=== PATIENT | male | born 1965 | race Caucasian/White ===

== ENCOUNTER 2024-07-05 02:33 | Emergency (ER) | payer MEDICARE, MEDICAID, SELFPAY ==
[2024-07-05 02:33] VITALS: BMI 20.9
[2024-07-05 02:41] VITALS: BP 142/92; PULSE 91; RESP 18; TEMP 36.7; O2SAT 98; BMI 21.0
[2024-07-05] MEDS: SILVER NITRATE 1 APPL EA TOP ×2 (03:50→03:55)
--- NOTE | 2024-07-05 04:01 | PD.EDEPIST ---
ED Epistaxis RME/HPI General Chief complaint: Epistaxis/Nasal Foreign Body Stated complaint: NOSE BLEED Time Seen by Provider: 07/05/24 03:24 Arrival date/time: 07/05/24 02:33 57M with history of psych disorder presents to ED with caregiver for spontaneous nosebleed. Patient is not on bleed thinner. Limitations: no limitations Related Data Home Medications ?Medication ?Instructions ?Recorded ?Confirmed allopurinol 100 mg tablet 100 mg PO DAILY #0 tabs 10/11/16 12/31/19 (Zyloprim) digoxin 125 mcg (0.125 mg) tablet 125 mcg PO QDAY ##0 10/21/16 01/01/20 levothyroxine 25 mcg tablet 25 mcg PO QDAY #0 tabs 10/21/16 12/31/19 divalproex 500 mg tablet,delayed 500 mg PO BID 06/06/19 12/31/19 release lorazepam 0.5 mg tablet (Ativan) 0.5 mg PO BID 06/06/19 01/01/20 atorvastatin 20 mg tablet 20 mg PO QDAY 12/31/19 12/31/19 ibuprofen 800 mg tablet 800 mg PO Q8H PRN Pain 12/31/19 12/31/19 loratadine 10 mg tablet 10 mg PO QDAY 12/31/19 12/31/19 melatonin 3 mg capsule 3 mg PO HS PRN Sleep 12/31/19 12/31/19 metformin 500 mg tablet 750 mg PO QDAY 12/31/19 12/31/19 Previous Rx's ?Medication ?Instructions ?Recorded aspirin 81 mg chewable tablet 81 mg PO QDAY ##100 10/05/16 docusate sodium 250 mg capsule 250 mg PO QDAY #100 caps 10/05/16 (DOK) Allergies Allergy/AdvReac Type Severity Reaction Status Date / Time ziprasidone Allergy Severe Rash Verified 07/05/24 02:35 thioridazine Allergy Unknown Verified 07/05/24 02:35 haloperidol Allergy Rash Verified 07/05/24 02:35 Review of Systems Review of Systems Systems Reviewed: All systems reviewed, normal except as documented Constitutional Constitutional: Reports system reviewed and no additional complaints, except as documented, Denies fever(s) and Denies headache(s) ENT Ears, Nose, Mouth, and Throat: Reports as per HPI, Denies disequilibrium, Reports epistaxis and Denies headache(s) Cardiovascular Cardiovascular: Reports system reviewed and no additional complaints, except as documented, Denies chest pain and Denies dyspnea Respiratory Respiratory: Reports system reviewed and no additional complaints, except as documented, Denies cough and Denies dyspnea Gastrointestinal Gastrointestinal: Reports system reviewed and no additional complaints, except as documented, Denies abdominal pain, Denies nausea and Denies vomiting Neurologic Neurologic: Reports system reviewed and no additional complaints, except as documented, Denies confusion, Denies disequilibrium and Denies headache(s) Psychiatric Psychiatric: Denies confusion Past Medical History Past Medical History NEUROLOGIC: Positive Neurological Disorders and Cerebral Palsy; Negative Seizures CARDIAC: Positive Cardiac Disorders, Hypercholesterolemia (TAKES MED), Congestive Heart Failure and Hypertension (TAKES MED) RESPIRATORY: Negative Chronic Obstructive Pulmonary Disease (COPD), Tuberculosis or Sleep Apnea GASTROINTESTINAL: Positive Gastrointestinal Disorders (CHRONIC CONSTIPATION) GENITOURINARY: Negative Genitourinary Disorders or Renal Disease MUSCULOSKELETAL: Positive Musculoskeletal Disorders and Gout ENDOCRINE: Positive Endocrine Disorders and Diabetes Mellitus Type 2 (TAKES PO MED); Negative Diabetes Mellitus Type 1 HEMATOLOGIC: Negative Blood Disorders OTHER HISTORY: Negative Hospitalization, Shingles, Falls, Blood Transfusions, Blood Transfusion Reaction, Anesthesia Reactions, Chicken Pox, Measles, Mumps or Cancer Surgical History SURGICAL: Positive Cardiac Surgery and Pacemaker (LEFT CHEST) Social History SMOKING STATUS: Never smoker SECOND HAND EXPOSURE: No ED Exam General Limitations: Present no limitations General appearance: Present alert and in no apparent distress Head Head exam: Present atraumatic Eye Eye exam: Present normal appearance, PERRL and EOMI ENT ENT exam: Present normal oropharynx and mucous membranes moist Expanded ENT Exam Nasal speculum exam: Left: epistaxis Neck Neck exam: Present normal inspection, full ROM and trachea midline Chest Chest inspection: Present normal inspection and symmetric chest wall rise Respiratory Respiratory exam: Present normal lung sounds bilaterally Cardiovascular Cardiovascular exam: Present regular rate, normal rhythm and normal heart sounds Abdominal Exam Abdominal exam: Present soft and normal bowel sounds Extremities Exam Extremities exam: Present normal inspection and full ROM Back Exam Back exam: Present normal inspection and full ROM Neurological Exam Neurological exam: Present alert, oriented X3 and CN II-XII intact Psychiatric Psychiatric exam: Present normal affect and normal mood Skin Skin exam: Present warm, dry, intact and normal color Course Quality Measures none Orders Category Date Time Status Silver Nitrate Applicators Med 07/05/24 03:24 Discontinued 1 appl TOP X1 ONE Silver Nitrate Applicators Med 07/05/24 03:44 Discontinued 1 appl TOP X1 ONE Vital Signs Vital signs: Vital Signs Temperature 98.0 F 07/05/24 02:41 Pulse Rate 91 07/05/24 02:41 Respiratory Rate 18 07/05/24 02:41 Blood Pressure 142/92 H 07/05/24 02:41 Pulse Oximetry (%) 98 07/05/24 02:41 Oxygen Delivery Method Room Air 07/05/24 02:41 O2 at 98% on RA and WNLs Epistaxis MDM Narrative MDM Narrative:: 57M with history of psych disorder presents to ED with caregiver for spontaneous nosebleed. Patient is not on bleed thinner. Physical exam reveals raw skin in L nare. Normal pupil response. No gross head trauma. Patient is afebrile, calm, and alert. Bleeding cauterized to prevent recurrent bleed. Patient data External records reviewed:: [facility] previous records Clinical information provided by:: patient and transmission inspector Social determinants that could affect healthcare access:: mental health Patient has the following chronic illnesses:: psych How is presenting disease/condition affected by chronic disease/condition?: exacerbated by Evaluation data The following diagnostics were reviewed and interpreted by me:: other (specify) (none) Lab and/or radiology exams considered but not ordered:: not ordered Interpretation Summary: n/a Medications / Prescriptions Medications or Prescriptions considered but not ordered:: ordered Medication administrations:: Medication Administration History Discontinued Medications Silver Nitrate (Silver Nitrate 1 Appl Ea) 1 appl TOP X1 ONE Stop: 07/05/24 03:25 Last Admin: 07/05/24 03:50 Dose: 1 appl Documented By: INÉS Comments: ADMINISTERED BYPROVIDER COYLE Silver Nitrate (Silver Nitrate 1 Appl Ea) 1 appl TOP X1 ONE Stop: 07/05/24 03:45 Last Admin: 07/05/24 03:55 Dose: 1 appl Documented By: INÉS Comments: ADMINISTERED BY PROVIDER COYLE above Consultations Consultation(s) initiated? (list below): No Diagnosis Epistaxis Differential Diagnosis: nasal bone fracture, anterior epistaxis and posterior epistaxis Most likely diagnosis given after review of the tests above:: epistaxis Admission Indicated Admission indicated?: not indicated Admission Request Was there a request for admission?: No Disposition Plan Disposition Plan: Discharge Discharge Attestation Discharge Attestation: The patient and all family members were given an opportunity to ask questions and understood the discharge instructions. Discharge instructions specifically effects, indications for sooner follow up or return to the emergency department, and the expected course of current diagnosis. Patient condition: Stable Discharge Plan Plan Patient Disposition: HOME (Self Care) Disposition Comment: Stable Prescriptions/Referrals Prescriptions/Med Rec: No Action aspirin 81 MG tablet,chewable 81 mg PO QDAY Qty: 100 0RF docusate sodium [DOK] 250 MG capsule 250 mg PO QDAY Qty: 100 0RF allopurinol [Zyloprim] 100 MG tablet 100 mg PO DAILY Qty: 0 levothyroxine 25 mcg Tablet 25 mcg PO QDAY Qty: 0 digoxin 125 MCG tablet 125 mcg PO QDAY Qty: 0 divalproex 500 mg Tablet,Delayed Release (Dr/Ec) 500 mg PO BID lorazepam [Ativan] 0.5 mg Tablet 0.5 mg PO BID metformin 500 mg Tablet 750 mg PO QDAY ibuprofen 800 mg Tablet 800 mg PO Q8H PRN (Reason: Pain) loratadine 10 mg Tablet 10 mg PO QDAY melatonin 3 mg Capsule 3 mg PO HS PRN (Reason: Sleep) atorvastatin 20 mg Tablet 20 mg PO QDAY Problem List Clinical Impression: Epistaxis Patient/Caregiver Discharge Instructions Education Materials: ED Epistaxis (Adult) Additional Instructions: Please follow-up with PCP within 24-48 hours and return immediately if symptoms worsen. Print Language: Yakut Stand Alone Forms: Patient Portal Info Letter TULIO/ABHINAV Supervising Physician TULIO/ABHINAV Supervising Physician: Dr. Alfred
== END 2024-07-05 04:00 | disposition home or self-care (01) ==
LOC: SERX 03:59
PROVIDERS: Emergency Provider Emergency Medicine; PCP Family Medicine
DX: R04.0 Epistaxis (principal)
CPT/HCPCS: 30901; 99283

== ENCOUNTER 2024-10-12 11:45 | Emergency (ER) | payer MEDICARE, MEDICAID, SELFPAY ==
[2024-10-12 11:46] VITALS: BMI 22.2
--- NOTE | 2024-10-12 11:58 | XR_ITS ---
Examination: Foot, left, 3 views Technique: AP, oblique, lateral views foot, 3 views Date and time of exam: October 12, 2024 1209 hours INDICATIONS: Swelling in foot pain beginning 5 days ago. FINDINGS: Moderate osteopenia Soft tissue swelling dorsum of the foot Mild bunion deformity No fracture No cortical bone destruction IMPRESSION: No fracture No cortical bone destruction
--- NOTE | 2024-10-12 11:58 | XR_ITS ---
Examination: Duplex scan of the lower extremity, unilateral left complete Date and time of exam: October 12, 2024 1227 hours INDICATIONS: Left lower leg swelling and pain beginning 3 days ago Technique: Duplex scan of the extremity veins using B-mode/grayscale imaging and Doppler spectral analysis and color flow Attention is directed to internal echogenicity, compression and augmentation involving these veins, color flow assessment, spectral analysis Findings: Major deep venous structures in the extremity demonstrate normal course and caliber. There is no evidence of deep vein thrombosis. Normal color flow and spectral analysis Impression: Negative for DVT..
--- NOTE | 2024-10-12 11:59 | EDNOTE_ITS ---
<Statement entered by Beulah Haile MD - 10/12/24 17:55> As co-signing physician, I was present and available for consult prn. I concur with the plan and care as documented by the midlevel provider. ED General RME/HPI General Chief complaint: Ankle/Foot Injury Stated complaint: LEFT FOOT/ANKLE SWELLING SINCE SATURDAY Time Seen by Provider: 10/12/24 11:56 Arrival date/time: 10/12/24 11:45 CC: Left foot pain and swelling HPI ongoing for 4 days with no relief. Patient is developmentally delayed and nonverbal caretakers state the patient has been limping, grimacing when walking. Providers deny fever chills shortness of breath nausea or vomiting. Related Data Home Medications ?Medication ?Instructions ?Recorded ?Confirmed allopurinol 100 mg tablet 100 mg PO DAILY #0 tabs 09/1412/31/19 (Zyloprim) digoxin 125 mcg (0.125 mg) tablet 125 mcg PO QDAY ##0 10/21/16 01/01/20 levothyroxine 25 mcg tablet 25 mcg PO QDAY #0 tabs 03/3112/31/19 divalproex 500 mg tablet,delayed 500 mg PO BID 9 12/31/19 release lorazepam 0.5 mg tablet (Ativan) 0.5 mg PO BID 9 01/01/20 atorvastatin 20 mg tablet 20 mg PO QDAY 12/31/1912/30 ibuprofen 800 mg tablet 800 mg PO Q8H PRN Pain 12/3012/31/19 loratadine 10 mg tablet 10 mg PO QDAY 12/31/1912/30 melatonin 3 mg capsule 3 mg PO HS PRN Sleep 0 12/31/19 metformin 500 mg tablet 750 mg PO QDAY 12/31/1912/13 Previous Rx's ?Medication ?Instructions ?Recorded aspirin 81 mg chewable tablet 81 mg PO QDAY ##100 09/13 10/29 docusate sodium 250 mg capsule 250 mg PO QDAY #100 cap s 10/05/16 (DOK) Allergies Allergy/AdvReac Type Severity Reaction Status Date / Time ziprasidone Allergy Severe Rash Verified 10/12/24 11:48 thioridazine Allergy Unknown Verified 10/12/24 11:48 haloperidol Allergy Rash Verified 10/12/24 11:48 Review of Systems Review of Systems ROS Unobtainable: unobtainable due to mental status Past Medical History Past Medical History NEUROLOGIC: Positive Neurological Disorders and Cerebral Palsy; Negative Seizures CARDIAC: Positive Cardiac Disorders, Hypercholesterolemia (TAKES MED), Congestive Heart Failure and Hypertension (TAKES MED) RESPIRATORY: Negative Chronic Obstructive Pulmonary Disease (COPD), Tuberculosis or Sleep Apnea GASTROINTESTINAL: Positive Gastrointestinal Disorders (CHRONIC CONSTIPATION) GENITOURINARY: Negative Genitourinary Disorders or Renal Disease MUSCULOSKELETAL: Positive Musculoskeletal Disorders and Gout ENDOCRINE: Positive Endocrine Disorders and Diabetes Mellitus Type 2 (TAKES PO MED); Negative Diabetes Mellitus Type 1 HEMATOLOGIC: Negative Blood Disorders OTHER HISTORY: Negative Hospitalization, Shingles, Falls, Blood Transfusions, Blood Transfusion Reaction, Anesthesia Reactions, Chicken Pox, Measles, Mumps or Cancer Surgical History SURGICAL: Positive Cardiac Surgery and Pacemaker (LEFT CHEST) Social History SMOKING STATUS: Never smoker SECOND HAND EXPOSURE: No ED Exam Narrative Physical exam: [General: Appears not in any acute distress Head normocephalic HEENT: Eyes pupils are PERRLA EOMs tracking mouth pink dry membranes all the subsystems of ATTR within acceptable limits Neck is supple nontender Chest equal chest rise nontender to palpation Respiratory: Clear to auscultation no wheezes crackles or rubs CV: Rate rhythm is regular no murmurs rubs or clicks Abdomen is soft nontender no masses positive bowel sounds all 4 quadrants Back: No CVA tenderness no spinous process tenderness from cervical spine thoracic and lumbar spine Skin: Intact no petechiae rash induration ulceration or crepitus Extremities: Left foot: Nonpitting edema, no erythema streaking open lesions induration or ulcerations. Bottom of the foot is clean dry and intact no erythema or open lesions indurations. No grimacing with calcaneal squeeze metatarsal squeeze. No grimacing with palpation of the left calf. Moving all other extremities against resistance cap refill less than 2 seconds neurosensory intact Neuro: Awake alert, reported as baseline for care provider at bedside Course Quality Measures none Orders Category Date Time Status US venous doppler LE LT Stat Exams 10/12/24 11:58 Completed XR foot comp LT min 3V Stat Exams 10/12/24 11:58 Completed CBC Stat Lab 10/12/24 13:06 Completed CMP [Comprehensive Metabolic Panel] Stat Lab 10/12/24 13:06 Completed Vital Signs Vital signs: Vital Signs Temperature 97.5 F 10/12/24 12:03 Pulse Rate 89 10/12/24 12:03 Respiratory Rate 18 10/12/24 12:03 Blood Pressure 173/77 H 10/12/24 12:03 Pulse Oximetry (%) 97 10/12/24 12:03 Oxygen Delivery Method Room Air 10/12/24 12:03 [facility] Patient data External records reviewed:: [facility] previous records Clinical information provided by:: patient and race and sports book writer Social determinants that could affect healthcare access:: none Patient has the following chronic illnesses:: Chronic bipolar disorder How is presenting disease/condition affected by chronic disease/condition?: u neffected by Evaluation data The following diagnostics were reviewed and interpreted by me:: lab results and radiology exam(s) Lab and/or radiology exams considered but not ordered:: CBC shows no acute leukocytosis there is a mild anemia 12.8 and 38.98 Mehmet crit no thrombocytopenia. CMP shows no acute electrolyte imbalances no renal impairment transaminitis or T. bili elevation. Ultrasound of the leg is negative for DVT X-ray of the foot is negative for fracture malalignment dislocation as interpreted by me read by radiology. Interpretation Summary: Foot pain with foot edema Medications Medications considered but not ordered:: None Medication administrations:: None Consultations Consultation(s) initiated? (list below): No Diagnosis Differential Diagnosis ED Complaint MDM: Cellulitis fracture, DVT Most likely diagnosis given after review of the tests above:: foot pain Admission Indicated Admission indicated?: not indicated Explain why admission is indicated or not indicated:: stable of discharge Admission Request Was there a request for admission?: No Disposition Plan Disposition Plan: Discharge Discharge Attestation Discharge Attestation: The patient and all family members were given an opportunity to ask questions and understood the discharge instructions. Discharge instructions specifically effects, indications for sooner follow up or return to the emergency department, and the expected course of current diagnosis. Patient condition: Stable Medical Decision Making Differential Diagnosis Differential Diagnosis: Cellulitis fracture, DVT Lab Data 10/12/24 13:06 10/12/24 13:06 Labs: Lab Results 10/12/24 Range/Units 13:06 WBC 8.9 (3.8-10.6) Thou/mm3 RBC 4.95 (4.50-5.90) Miln/mm3 Hgb 12.8 L (13.5-16.0) g/dL Hct 39.9 L (41.0-53.0) % MCV 81 (80-100) fL MCH 25.9 (25.0-35.0) pg MCHC 32.1 (31.0-37.0) g/dl RDW Std Deviation 43.8 (35.1-43.9) fL Plt Count 255 (140-440) Thou/mm3 Neut % (Auto) 73 (37-80) % Lymph % (Auto) 13 (10-50) % [place] % (Auto) 11 (0-12) % Eos % (Auto) 3 (0-10) % Baso % (Auto) 1 (0-2.5) % Neut # (Auto) 6.5 (1.8-7.7) Thou/mm3 Lymph # (Auto) 1.2 (1.0-4.8) Thou/mm3 [place] # (Auto) 1.0 H (0.0-0.8) Thou/mm3 Eos # (Auto) 0.2 (0.0-0.5) Thou/mm3 Baso # (Auto) 0.1 (0.0-0.2) Thou/mm3 Immature Gran # (Auto) 0.02 H (0.00-0.00) Thou/mm3 Absolute Nucleated RBC 0.00 (0.00-0.00) Thou/mm3 Immature Gran % 0 (0-0) % Nucleated RBC % 0 (0) /100 WBC Sodium 142 (136-145) mMol/L Potassium 4.1 (3.4-5.1) mMol/L Chloride 103 (98-107) mMol/L Carbon Dioxide 26.4 (20.0-31.0) mMol/L Anion Gap 13 (7-16) BUN 21 (9-23) mg/dL Creatinine 0.8 (0.6-1.3) mg/dL Estim Creat Clear Calc 90.2 (>60) mL/min eGFR > 60 (60 - ) See Note BUN/Creatinine Ratio 26 H (12-20) Ratio Glucose 106 (74-106) mg/dL Calculated Osmolality 286 (275-295) Calcium 10.6 (8.3-10.6) mg/dL Corrected Calcium 10.6 H (8.5-10.1) mg/dL Total Bilirubin 0.5 (0.3-1.2) mg/dL AST 24 (0-34) U/L ALT 13 (10-49) U/L Alkaline Phosphatase 83 (46-116) U/L Total Protein 8.1 (5.7-8.2) gm/dL Albumin 4.9 (3.5-5.0) gm/dL Globulin 3.2 (2.3-3.5) gm/dL Albumin/Globulin Ratio 1.5 (1.2-2.2) Discharge Plan Plan Patient Disposition: HOME (Self Care) Patient condition on transfer: Stable Prescriptions/Referrals Prescriptions/Med Rec: No Action aspirin 81 MG tablet,chewable 81 mg PO QDAY Qty: 100 0RF docusate sodium [DOK] 250 MG capsule 250 mg PO QDAY Qty: 100 0RF allopurinol [Zyloprim] 100 MG tablet 100 mg PO DAILY Qty: 0 levothyroxine 25 mcg Tablet 25 mcg PO QDAY Qty: 0 digoxin 125 MCG tablet 125 mcg PO QDAY Qty: 0 divalproex 500 mg Tablet,Delayed Release (Dr/Ec) 500 mg PO BID lorazepam [Ativan] 0.5 mg Tablet 0.5 mg PO BID metformin 500 mg Tablet 750 mg PO QDAY ibuprofen 800 mg Tablet 800 mg PO Q8H PRN (Reason: Pain) loratadine 10 mg Tablet 10 mg PO QDAY melatonin 3 mg Capsule 3 mg PO HS PRN (Reason: Sleep) atorvastatin 20 mg Tablet 20 mg PO QDAY Referrals: Kaci Lainez FNP [Primary Care Provider] - In 1 week Problem List Clinical Impression: Foot pain Patient/Caregiver Discharge Instructions Education Materials: ED Pain, Acute, Uncertain Cause Additional Instructions: Ibuprofen or Tylenol for pain. He may walk if he wants to pain dependent. If is worsening of symptoms follow-up with a primary care provider. Print Language: Cook Islander Stand Alone Forms: Lorraine Award Info., Work/School Release, Patient Portal Info Letter TULIO/OVEN WORKER Supervising Physician TULIO/OVEN WORKER Supervising Physician: Thanh Izaguirre ENP
[2024-10-12 12:03] VITALS: BP 173/77; PULSE 89; RESP 18; TEMP 36.4; O2SAT 97
[2024-10-12 13:27] LABS: Basophils # (Auto) 0.1 Thou/mm3 (0.0-0.2); Basophils % (Auto) 1 % (0-2.5); Eosinophils # (Auto) 0.2 Thou/mm3 (0.0-0.5); Eosinophils % (Auto) 3 % (0-10); Hematocrit 39.9 % (41.0-53.0); Hemoglobin 12.8 g/dL (13.5-16.0); Immature Granulocytes % (Auto) 0 % (0-0); Immature Granulocytes Auto 0.02 Thou/mm3 (0.00-0.00); Lymphocytes # (Auto) 1.2 Thou/mm3 (1.0-4.8); Lymphocytes % (Auto) 13 % (10-50); Mean Corpuscular HGB Conc 32.1 g/dl (31.0-37.0); Mean Corpuscular Hemoglobin 25.9 pg (25.0-35.0); Mean Corpuscular Volume 81 fL (80-100); Monocytes % (Auto) 11 % (0-12); Neutrophils # (Auto) 6.5 Thou/mm3 (1.8-7.7); Neutrophils % (Auto) 73 % (37-80); Nucleated Red Blood Cell % 0 /100 WBC (0); Platelet Count 255 Thou/mm3 (140-440); RDW Standard Deviation 43.8 fL (35.1-43.9); Red Blood Count 4.95 Miln/mm3 (4.50-5.90); White Blood Count 8.9 Thou/mm3 (3.8-10.6)
[2024-10-12 13:48] LABS: Alanine Aminotransferase 13 U/L (10-49); Albumin, Serum 4.9 gm/dL (3.5-5.0); Albumin/Globulin Ratio 1.5 (1.2-2.2); Alkaline Phosphatase 83 U/L (46-116); Anion Gap 13 (7-16); Aspartate Amino Transferase 24 U/L (0-34); BUN/Creatinine Ratio 26 Ratio (12-20); Bilirubin,Total 0.5 mg/dL (0.3-1.2); Blood Urea Nitrogen 21 mg/dL (9-23); Calcium 10.6 mg/dL (8.3-10.6); Calcium (Corrected) 10.6 mg/dL (8.5-10.1); Carbon Dioxide 26.4 mMol/L (20.0-31.0); Chloride 103 mMol/L (98-107); Creatinine (Component) 0.8 mg/dL (0.6-1.3); Estimated Creatinine Clearance 90.2 mL/min (>60); Globulin 3.2 gm/dL (2.3-3.5); Glucose 106 mg/dL (74-106); Osmolality,Calculated 286 (275-295); Potassium 4.1 mMol/L (3.4-5.1); Sodium 142 mMol/L (136-145); Total Protein 8.1 gm/dL (5.7-8.2); eGFR > 60 See Note
[2024-10-12 14:17] VITALS: BP 118/74; PULSE 95; RESP 18; TEMP 36.7; O2SAT 98
== END 2024-10-12 14:39 | disposition home or self-care (01) ==
PROVIDERS: Registered Nurse General Practice; Emergency Provider Emergency Medicine; PCP Registered Nurse Community Health
DX: M79.672 Pain in left foot (principal); M79.89 Other specified soft tissue disorders
CPT/HCPCS: 36415; 73630; 80053; 85025; 93971; 99284